=== PATIENT | female | born 1940 | race Caucasian/White ===

== ENCOUNTER → 2017-09-09 | Outpatient (CLI) | payer OTHER ==
[~2017-09-09] MED LIST: ACETAMINOPHEN325 M1 PO; ACYCLOVIR 800800 M1; CIPROFLOXACIN500 M1 PO; CYCLOBENZAPRINE10 MG PO; ED-SPAZ0.125 MG PO; ESTRACE1 MG PO; GLUCOPHAGE500 MG PO; NEURONTIN 300300 M1 PO; PERCOCET 5-3251 EACH; QUESTRAN PACKET4 GM PO; TETRACYCLINE PO; TIZANIDINE HCL4 MG PO; TRAMADOL 50 MG50 MG OR; ZOFRAN4 MG PO
== END ==
LOC: M.RAD 09:54
DX: Z12.31 Encounter for screening mammogram for malignant neoplasm of breast (principal)

== ENCOUNTER → 2017-09-09 | Outpatient (CLI) | payer OTHER ==
[2017-09-09 14:48] LABS: ABSOLUTE EOSINOPHILS 0.1 thou/uL (0.0-0.7); ABSOLUTE LYMPHOCYTES 0.9 thou/uL (0.8-5.3); ABSOLUTE MONOCYTES 0.6 thou/uL (0.0-1.2); ABSOLUTE NEUTROPHILS 4.3 thou/uL (1.6-8.1); BASOPHILS 0.5 %; EOSINOPHILS 1.1 %; HEMATOCRIT 34.5 % (37.0-47.0); HEMOGLOBIN 11.3 gm/dL (12.0-15.0); MCHC 32.7 g/dL (28.0-37.0); MCV 88.8 fL (80.0-100.0); MONOCYTES 9.9 %; NUCLEATED RBCS 0 /100WBC; PLATELET COUNT* 241 thou/uL (150-400); POLYS 72.5 %; RBC 3.89 mil/uL (4.20-5.00); RDW-CV 15.1 % (10.5-14.5); WBC 5.9 thou/uL (4.0-11.0)
[2017-09-09 15:03] LABS: CREATININE 1.1 mg/dL (0.6-1.3); MAGNESIUM 1.6 mg/dL (1.8-2.4); POTASSIUM 3.3 mmol/L (3.5-5.1); TOTAL BILIRUBIN 0.4 mg/dL (<0.1-1.0); TOTAL PROTEIN 6.8 g/dL (6.4-8.2)
[2017-09-09 15:55] LABS: ESR (SEDRATE) 48 mm/hr (0-30)
== END ==
LOC: M.LAB 14:34
PROVIDERS: Internal Medicine
DX: R07.89 Other chest pain (principal); R68.89 Other general symptoms and signs

== ENCOUNTER → 2018-05-06 | Outpatient (CLI) | payer OTHER | LOC: M.RAD 10:10 | DX: M79.641 Pain in right hand (principal); M79.642 Pain in left hand ==

== ENCOUNTER → 2018-09-08 | Outpatient (CLI) | payer OTHER | LOC: M.RAD 10:20 | DX: Z12.31 Encounter for screening mammogram for malignant neoplasm of breast (principal) ==

== ENCOUNTER → 2018-09-14 | Outpatient (CLI) | payer OTHER | LOC: M.RAD 09-10 15:34 | DX: N63.20 Unspecified lump in the left breast, unspecified quadrant (principal) ==

== ENCOUNTER → 2019-03-11 | Outpatient (CLI) | payer OTHER | LOC: M.RAD 03-09 10:00 → M.ULTRA 03-09 10:30 → M.RAD 10:32 | DX: R92.2 Inconclusive mammogram (principal) ==

== ENCOUNTER → 2019-12-10 | Outpatient (CLI) | payer OTHER | LOC: M.RAD 09:50 | DX: Z12.31 Encounter for screening mammogram for malignant neoplasm of breast (principal) ==